=== PATIENT | male | born 1980 | race Caucasian/White ===

== ENCOUNTER 2019-08-11 22:14 | Emergency (ER) | payer SELFPAY ==
[~2019-08-11] VITALS: Ht 175.3 cm; Wt 82.0 kg
[2019-08-11] MEDS ORDERED: LORAZEPAM 1MG TABLET PO ONE (23:30)
[2019-08-11 23:37] LABS: BASOPHILS % 0.5 % (0.0-2.0); EOSINOPHILS % 2.1 % (0.0-5.0); HEMATOCRIT. 43.2 % (42.0-52.0); HEMOGLOBIN. 14.3 g/dL (14.0-18.0); LYMPHOCYTES % 12.2 % (20.0-50.0); MEAN CORPUSCULAR HEMOGLOBIN 27.8 pg (28.0-32.0); MEAN PLATELET VOLUME 8.4 fl (7.4-10.4); MONOCYTES % 5.8 % (2.0-8.0); NEUTROPHILS % 79.4 % (40.0-76.0); PLATELET 334 x1000/uL (130-400); RED BLOOD CELL COUNT 5.14 mill/uL (4.7-6.1); RED CELL DISTRIBUTION WIDTH 14.5 % (11.6-14.6)
[2019-08-11 23:42] LABS: CHLORIDE 106 mEq/L (98-107)
[2019-08-11 23:46] LABS: ETHANOL BLOOD < 10 mg/dL
[2019-08-12] MEDS ORDERED: POTASSIUM CHLORIDE 20MEQ TABLET SR PO ONE (00:30)
[2019-08-12] MEDS ORDERED: LORAZEPAM 1MG TABLET PO ONE (00:45)
[2019-08-12 01:20] VITALS: BP 185/96
== END 2019-08-12 01:24 | disposition home or self-care (01) ==
LOC: ER 22:14
DX: T43.621A Poisoning by amphetamines, accidental (unintentional), initial encounter (principal); Y92.89 Other specified places as the place of occurrence of the external cause; I10 Essential (primary) hypertension
CPT/HCPCS: 36415; 71045; 80320; 93005; 99284; G0480

== ENCOUNTER 2021-09-05 13:23 | Emergency (ER) | payer SELFPAY ==
[~2021-09-05] VITALS: Ht 177.8 cm; Wt 103.0 kg
[2021-09-05 13:27] VITALS: BP 146/67
[2021-09-05] MEDS ORDERED: FAMOTIDINE 20MG TABLET PO SCH (15:30)
[2021-09-05] MEDS ORDERED: FAMO-135 MT (17:05)
== END 2021-09-05 17:13 | disposition home or self-care (01) ==
LOC: ER 13:23
DX: R10.13 Epigastric pain (principal); I10 Essential (primary) hypertension
CPT/HCPCS: 93005; 99283